=== PATIENT | female | born 2000 | race Hispanic/Latino ===

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

== ENCOUNTER 2021-05-05 19:37 | Observation (INO) | payer MEDICAID ==
[~2021-05-05] VITALS: Ht 162.6 cm; Wt 101.2 kg
[2021-05-05 19:52] VITALS: BP 124/77
[2021-05-05] MEDS ORDERED: PREN-196 PO (19:52)
[2021-05-05 20:03] LABS: APPEARANCE,URINE Clear (CLEAR); BILIRUBIN,URINE Negative (NEGATIVE); COLOR,URINE Yellow (YELLOW); GLUCOSE, URINE (UA) Negative (NEGATIVE); KETONES,URINE Negative (NEGATIVE); LEUKOCYTE ESTERASE ,URINE Trace (NEGATIVE); NITRATE,URINE Negative (NEGATIVE); OCCULT BLOOD,URINE Negative (NEGATIVE); PROTEIN,URINE Trace mg/dL (NEGATIVE)
[2021-05-05 20:09] LABS: RBC,URINE 0-1 /HPF (0-1)
[2021-05-05 20:10] LABS: BACTERIA,URINE Few /HPF (None Seen); MUCUS,URINE Few LPF (None Seen); SQUAMOUS EPITHELIAL CELL,UR Few /HPF (0-2)
[2021-05-05 20:11] LABS: AMPHET/METH SCREEN,URINE NEGATIVE (NEGATIVE); BARBITURATE SCREEN, URINE NEGATIVE (NEGATIVE); BENZODIAZEPINES SCREEN,URINE NEGATIVE (NEGATIVE); CANNABINOID SCREEN,URINE NEGATIVE (NEGATIVE); COCAINE SCREEN,URINE NEGATIVE (NEGATIVE); OPIATE SCREEN,URINE NEGATIVE (NEGATIVE); PHENCYCLIDINE SCREEN,URINE NEGATIVE (NEGATIVE)
[2021-05-05] MEDS ORDERED: LACTATED RINGERS 1000ML 1,000 ML IV SCH (20:15)
== END 2021-05-05 21:30 | disposition home or self-care (01) ==
LOC: EDH 19:37 → LDH 19:48
PROVIDERS: ADMIT Obstetrics & Gynecology; ATTEND Obstetrics & Gynecology
DX: O26.893 Other specified pregnancy related conditions, third trimester (principal); R10.10 Upper abdominal pain, unspecified; O99.613 Diseases of the digestive system complicating pregnancy, third trimester; K59.00 Constipation, unspecified; O99.323 Drug use complicating pregnancy, third trimester; F12.90 Cannabis use, unspecified, uncomplicated; Z3A.37 37 weeks gestation of pregnancy; W19.XXXA Unspecified fall, initial encounter; Y93.89 Activity, other specified; Y92.008 Other place in unspecified non-institutional (private) residence as the place of occurrence of the external cause
CPT/HCPCS: 80305; 81001; 96360; G0378 ×2; G0379

== ENCOUNTER 2021-06-13 05:08 | Inpatient (IN) | payer MEDICAID ==
[~2021-06-13] VITALS: Ht 162.6 cm; Wt 104.8 kg
[~2021-06-13 05:08] MED LIST: PREN-196 PO
[2021-06-13] MEDS ORDERED: PREN-196 PO (05:22)
[2021-06-13] MEDS ORDERED: CALDOLOR 800MG+NS 250ML 250 ML IV PRN (05:30)
[2021-06-13] MEDS ORDERED: GENTAMICIN SULFATE 240 MG in 0.9%NACL 100ML 100 ML IV PRN (05:30)
[2021-06-13] MEDS ORDERED: CLINDAMYCIN IVPB 900MG/50ML 50 ML IV PRN (05:30)
[2021-06-13 06:15] LABS: HEMATOCRIT 29.2 % (36-48); MEAN CORPUSCULAR HEMOGLOBIN 21.9 pg (27.0-33.0); MEAN CORPUSCULAR HGB CONC 30.5 g/dL (32.0-36.0); MEAN CORPUSCULAR VOLUME 71.9 fL (80-100); NUCLEATED RED BLOOD CELLS 0.2 % (0.0-0.19); PLATELET COUNT (AUTO) 192 K/uL (130-400); RED BLOOD CELL COUNT(AUTO) 4.06 MIL/uL (4.00-5.50); RED CELL DISTRIBUTION WIDTH 16.1 % (11.0-15.5); WHITE BLOOD COUNT (AUTO) 8.9 K/uL (4.8-10.8)
[2021-06-13] MEDS ORDERED: CLINDAMYCIN 900MG/6ML INJ IJ ONE (06:30)
[2021-06-13] MEDS ORDERED: MORPHINE PF 100MG/10ML AMP IV ONE (07:23)
[2021-06-13] MEDS ORDERED: OXYTOCIN 10 USP UNITS/ML ONE (07:23)
[2021-06-13 07:43] LABS: AMPHET/METH SCREEN,URINE NEGATIVE (NEGATIVE); BARBITURATE SCREEN, URINE NEGATIVE (NEGATIVE); BENZODIAZEPINES SCREEN,URINE NEGATIVE (NEGATIVE); CANNABINOID SCREEN,URINE NEGATIVE (NEGATIVE); COCAINE SCREEN,URINE NEGATIVE (NEGATIVE); OPIATE SCREEN,URINE NEGATIVE (NEGATIVE); PHENCYCLIDINE SCREEN,URINE NEGATIVE (NEGATIVE)
[2021-06-13] MEDS ORDERED: METHYLERGONOVINE MALEATE 0.2 MG/1 ML ML ONE (07:46)
[2021-06-13] MEDS ORDERED: MISOPROSTOL 200 MCG TABLET ONE (07:46)
[2021-06-13] MEDS ORDERED: ONDANSETRON 4MG INJ ONE (07:59)
[2021-06-13] MEDS ORDERED: GLYCOPYRROLATE 1 MG/5 ML SYRINGE ONE (07:59)
[2021-06-13] MEDS ORDERED: PROMETHAZINE HCL 25 MG/ML 1ML AMPULE IM PRN (09:00)
[2021-06-13] MEDS ORDERED: DEXTROSE 5 %-0.45 % NACL 1,000 ML IV PRN (09:00)
[2021-06-13] MEDS ORDERED: 0.9%NACL 10ML VIAL IVP PRN (09:00)
[2021-06-13] MEDS ORDERED: OXYTOCIN-LR 20 UNITS/1000 ML 1,000 ML IV PRN (09:00)
[2021-06-13] MEDS ORDERED: MEPERIDINE-PF 75 MG/ML SYG IM PRN (09:00)
[2021-06-13] MEDS ORDERED: DiphenhydrAMINE HCL 50 MG/ML VIAL IVP PRN (09:30)
[2021-06-13] MEDS ORDERED: NALOXONE HCL 0.4 MG/1 ML ML IVP PRN (09:30)
[2021-06-13] MEDS ORDERED: ONDANSETRON 4MG INJ IVP PRN (09:30)
[2021-06-13] MEDS ORDERED: EPHEDRINE SULFATE 50 MG/ML AMPULE IVP PRN (09:30)
[2021-06-13 12:22] VITALS: BP 126/70
[2021-06-13 16:09] VITALS: BP 124/79
[2021-06-13] MEDS ORDERED: PREN1TAB63 PO (16:37)
[2021-06-13] MEDS: CALDOLOR 800MG+NS 250ML 250 ML IV SCH (16:43)
[2021-06-13] MEDS ORDERED: FLU VACC QS2021-22(6MOS UP)/PF 60 MCG/0.5 ML ML IM ONE (17:00)
[2021-06-13] MEDS ORDERED: DIPH,PERTUSS(ACELL),TET VAC/PF 0.5 ML VIAL IM ONE (17:00)
[2021-06-13 19:38] VITALS: BP 121/56
[2021-06-13 23:10] VITALS: BP 119/52
[2021-06-13 23:58] VITALS: BP 126/73
[2021-06-14] VITALS (7 sets, daily range): BP systolic 108–129; BP diastolic 61–80
[2021-06-14] MEDS: CALDOLOR 800MG+NS 250ML 250 ML IV SCH (01:10)
[2021-06-14] MEDS ORDERED: FLU VACC QS2021-22(6MOS UP)/PF 60 MCG/0.5 ML ML IM ONE (06:30)
[2021-06-14] MEDS ORDERED: DIPH,PERTUSS(ACELL),TET VAC/PF 0.5 ML VIAL IM ONE (06:30)
[2021-06-14 07:10] LABS: MEAN CORPUSCULAR HEMOGLOBIN 21.5 pg (27.0-33.0); MEAN CORPUSCULAR HGB CONC 29.5 g/dL (32.0-36.0); MEAN CORPUSCULAR VOLUME 72.8 fL (80-100); RED BLOOD CELL COUNT(AUTO) 3.02 MIL/uL (4.00-5.50); RED CELL DISTRIBUTION WIDTH 16.5 % (11.0-15.5); WHITE BLOOD COUNT (AUTO) 15.2 K/uL (4.8-10.8)
[2021-06-14 07:19] LABS: HEPATITIS Bs ANTIGEN SCREEN P Negative (Negative)
[2021-06-14] MEDS ORDERED: HYDROCODONE/ACETAMINOPHEN 5/325 MG TAB PO PRN (09:00)
[2021-06-14] MEDS ORDERED: ACETAMINOPHEN WITH CODEINE 1 TAB TAB PO PRN (09:00)
[2021-06-14] MEDS ORDERED: ACETAMINOPHEN 500 MG TABLET PO PRN (09:00)
[2021-06-14] MEDS ORDERED: BISACODYL 10 MG SUPP.RECT RC PRN (09:00)
[2021-06-14] MEDS: DOCUSATE SODIUM 100 MG CAP PO SCH ×2 (09:22→20:09)
[2021-06-14] MEDS: SIMETHICONE 80 MG TAB.CHEW PO PRN ×2 (09:22→20:09)
[2021-06-14] MEDS: IBUPROFEN 800 MG TAB PO SCH ×2 (09:22→17:00)
[2021-06-15] MEDS: IBUPROFEN 800 MG TAB PO SCH ×2 (00:40→08:22)
[2021-06-15 03:34] VITALS: BP 129/74
[2021-06-15 07:16] VITALS: BP 118/57
[2021-06-15] MEDS: DOCUSATE SODIUM 100 MG CAP PO SCH (08:16)
[2021-06-15] MEDS: SIMETHICONE 80 MG TAB.CHEW PO PRN ×2 (08:16→13:51)
[2021-06-15 11:51] VITALS: BP 120/69
[2021-06-15] MEDS ORDERED: DOCU-116 PO (12:10)
[2021-06-15] MEDS ORDERED: IBUP-2077 PO (12:11)
[2021-06-15] MEDS ORDERED: ACET1TAB25 PO (12:12)
== END 2021-06-15 14:20 | disposition home or self-care (01) | DRG 540 ==
LOC: LDH 05:08 → WSH 12:41
PROVIDERS: ADMIT Obstetrics & Gynecology; ATTEND Obstetrics & Gynecology
PROC: 3E0234Z Introduction of Serum, Toxoid and Vaccine into Muscle, Percutaneous Approach (ICD-10-PCS; 2021-06-13)
PROC: 3E02340 Introduction of Influenza Vaccine into Muscle, Percutaneous Approach (ICD-10-PCS; 2021-06-13)
PROC: 3E0334Z Introduction of Serum, Toxoid and Vaccine into Peripheral Vein, Percutaneous Approach (ICD-10-PCS; 2021-06-13)
PROC: 10D00Z1 Extraction of Products of Conception, Low, Open Approach (ICD-10-PCS; principal; 2021-06-13 07:30)
DX: O32.4XX0 Maternal care for high head at term, not applicable or unspecified (principal); O99.214 Obesity complicating childbirth; O26.893 Other specified pregnancy related conditions, third trimester; O36.63X0 Maternal care for excessive fetal growth, third trimester, not applicable or unspecified; O99.02 Anemia complicating childbirth; O69.81X0 Labor and delivery complicated by cord around neck, without compression, not applicable or unspecified; Z3A.40 40 weeks gestation of pregnancy; Z37.0 Single live birth; Z23 Encounter for immunization; Z88.0 Allergy status to penicillin; Z67.11 Type A blood, Rh negative
CPT/HCPCS: 36415; 59510; 80305; 83033; 85027; 86592; 86850; 86900; 86901; 87340; 90715; A4344; G0378; J1580; J1741; J2210; J2274; J2405; J2590; J2791; J3490; J7120; Q2035

== ENCOUNTER 2022-05-12 14:31 | Emergency (ER) | payer MEDICAID ==
[~2022-05-12] VITALS: Ht 165.1 cm; Wt 108.9 kg
[~2022-05-12 14:31] MED LIST changes: +ACET-2079 PO; +DOCU-116 PO; +IBUP-2077 PO
[2022-05-12 15:32] LABS: BASOPHILS % (AUTO) 0.6 % (0.0-5.0); EOSINOPHILS % (AUTO) 2.5 % (0.0-8.0); LYMPHOCYTES % (AUTO) 23.1 % (21.0-51.0); MEAN CORPUSCULAR HEMOGLOBIN 25.7 pg (27.0-33.0); MEAN CORPUSCULAR HGB CONC 32.3 g/dL (32.0-36.0); MEAN CORPUSCULAR VOLUME 79.8 fL (80-100); NEUTROPHILS % (AUTO) 64.5 % (40.0-77.0); PLATELET COUNT (AUTO) 238 K/uL (130-400); RED BLOOD CELL COUNT(AUTO) 5.01 MIL/uL (4.00-5.50); RED CELL DISTRIBUTION WIDTH 13.3 % (11.0-15.5); WHITE BLOOD COUNT (AUTO) 7.1 K/uL (4.8-10.8)
[2022-05-12 15:34] LABS: APPEARANCE,URINE CLOUDY (CLEAR); BILIRUBIN,URINE NEGATIVE (NEGATIVE); COLOR,URINE LIGHT-YELLOW (YELLOW); GLUCOSE, URINE (UA) NEGATIVE (NEGATIVE); KETONES,URINE NEGATIVE (NEGATIVE); LEUKOCYTE ESTERASE ,URINE 75 Leu/uL (NEGATIVE); NITRATE,URINE NEGATIVE (NEGATIVE); OCCULT BLOOD,URINE LARGE (NEGATIVE); PH,URINE 6.5 (5.0-8.0); PROTEIN,URINE 70 mg/dL (NEGATIVE); UROBILINOGEN,URINE 0.2 mg/dL (0.2-1.0)
[2022-05-12 15:36] LABS: HCG,QUALITATIVE URINE NEGATIVE (NEGATIVE)
[2022-05-12 15:41] LABS: MUCUS,URINE RARE LPF (None Seen); RBC,URINE TNTC /HPF (0-1); SQUAMOUS EPITHELIAL CELL,UR FEW /HPF (0-2); WBC,URINE 26-50 /HPF (0-1)
[2022-05-12 15:49] LABS: CREATININE 0.7 mg/dL (0.5-1.5); POTASSIUM 3.7 mmol/L (3.5-5.1)
[2022-05-12 16:00] LABS: ALBUMIN 4.3 g/dL (3.5-5.0); TOTAL PROTEIN, SERUM 8.2 g/dL (6.0-8.3)
[2022-05-12] MEDS ORDERED: AZITHROMYCIN 250 MG TABLET PO ONE ×2 (16:00→16:07)
[2022-05-12] MEDS ORDERED: CEFTRIAXONE 1G VIAL IM ONE (16:00)
[2022-05-12] MEDS ORDERED: CEFTRIAXONE 1G VIAL ONE (16:06)
[2022-05-12] MEDS ORDERED: LIDOCAINE HCL-MPF 2% 5ML VIAL ONE (16:06)
[2022-05-12] MEDS ORDERED: ACET-66 PO (17:02)
[2022-05-12] MEDS ORDERED: MACR100 PO (17:02)
[2022-05-12 17:09] VITALS: BP 119/72
== END 2022-05-12 17:14 | disposition home or self-care (01) ==
LOC: EDH 14:31
DX: N39.0 Urinary tract infection, site not specified (principal); Z79.1 Long term (current) use of non-steroidal anti-inflammatories (NSAID); Z88.0 Allergy status to penicillin
CPT/HCPCS: 99284; 80053; 84702; 85025; 86900; 86901; 87210; 87088; 87797; 87486; 81001; 81025; 36415; 96372; J0696; J3490

== ENCOUNTER 2024-05-07 01:47 | Emergency (ER) | payer BC, MEDICAID ==
[~2024-05-07] VITALS: Ht 165.1 cm; Wt 93.0 kg
[~2024-05-07 01:47] MED LIST changes: +ACET-66 PO; +MACR100 PO
[2024-05-07 02:24] LABS: BASOPHILS # (AUTO) 0.07 K/uL (0.00-0.20); BASOPHILS % (AUTO) 0.8 % (0.0-5.0); EOSINOPHILS # (AUTO) 0.09 K/uL (0.00-0.70); EOSINOPHILS % (AUTO) 1.1 % (0.0-8.0); HEMATOCRIT 40.9 % (36-48); IMMATURE GRANULOCYTE ABSOLUTE 0.03 K/uL (0-1); LYMPHOCYTES # (AUTO) 1.7 K/uL (1.0-4.8); LYMPHOCYTES % (AUTO) 19.5 % (21.0-51.0); MEAN CORPUSCULAR HEMOGLOBIN 27.7 pg (27.0-33.0); MEAN CORPUSCULAR HGB CONC 33.7 g/dL (32.0-36.0); MONOCYTES # (AUTO) 0.7 K/uL (0.1-1.0); MONOCYTES % (AUTO) 8.8 % (3.0-13.0); NEUTROPHILS # (AUTO) 5.9 K/uL (1.8-7.7); NEUTROPHILS % (AUTO) 69.4 % (40.0-77.0); PLATELET COUNT (AUTO) 230 K/uL (130-400); RED BLOOD CELL COUNT(AUTO) 4.99 MIL/uL (4.00-5.50); RED CELL DISTRIBUTION WIDTH 13.3 % (11.0-15.5); WHITE BLOOD COUNT (AUTO) 8.5 K/uL (4.8-10.8)
[2024-05-07 02:26] LABS: APPEARANCE,URINE CLEAR (CLEAR); BILIRUBIN,URINE NEGATIVE (NEGATIVE); COLOR,URINE LIGHT-YELLOW (YELLOW); GLUCOSE, URINE (UA) NEGATIVE (NEGATIVE); KETONES,URINE NEGATIVE (NEGATIVE); LEUKOCYTE ESTERASE ,URINE 75 Leu/uL (NEGATIVE); NITRATE,URINE NEGATIVE (NEGATIVE); OCCULT BLOOD,URINE NEGATIVE (NEGATIVE); PH,URINE 5.5 (5.0-8.0); PROTEIN,URINE 10 mg/dL (NEGATIVE); UROBILINOGEN,URINE 0.2 mg/dL (0.2-1.0)
--- NOTE | 2024-05-07 02:29 | ERN ---
General Chief Complaint: Abdominal Pain Stated Complaint: EPIGASTRIC PAIN Time Seen by MD: 02:10 Time Seen by Midlevel: 02:10 Source: patient History of Present Illness Initial Comments Patient is a 23-year-old female with no significant past medical history presenting with lower abdominal pain after lifting heavy. Patient states her older sister had fallen in the restroom and she attempted to pick her up. Patient states she recently found out she was four days ago and became concerned when she developed lower abdominal pain so she decided to report to the ER for further evaluation. On arrival she does report her pain improving but still has slight discomfort. She denies any vaginal bleeding, nausea, vomiting, or any other symptoms at this time. Allergies: Coded Allergies: No Known Drug Allergies (Unverified Allergy, Unknown, 05/05/21) amoxicillin (Unverified Allergy, Unknown, SWELLING, 05/05/21) Home Meds Active Scripts Nitrofurantoin/Nitrofuran Mac (Macrobid) 100 Mg Cap, 1 CAP PO BID for 5 Days, #10 CAP 0 Refills Prov:CLIFFORD HAND 05/07/24 Acetaminophen (Tylenol) 500 Mg Tab, 500 MG PO Q4PRN, #30 TAB Prov:CHINMAY ZAMORANO INK BLENDER 05/12/22 Nitrofurantoin/Nitrofuran Mac (Macrobid) 100 Mg Cap, 1 CAP PO BID for 7 Days, #14 CAP 0 Refills Prov:CHINMAY ZAMORANO INK BLENDER 05/12/22 Reported Medications Acetaminophen with Codeine (Acetaminophen-Cod #3 Tablet) 1 Each Tablet, 1 EACH PO Q4H, TAB 06/15/21 Ibuprofen (Ibuprofen 800 mg Tab) 800 Mg Tab, 800 MG PO Q8H PRN for PAIN, TAB 06/15/21 Docusate Sodium (Colace) 100 Mg Capsule, 100 MG PO BID, CAP 06/15/21 Vit No.124/Iron/FA ( Vitamin Tablet) 1 Each Tablet, 1 EACH PO DAILY, TAB 06/13/21 Past Medical History Past Medical History: No Pertinent History Past Surgical History: Female( History) LMP: Apr 04, 2024 : 2 Para: 1 Aborts: 0 ROS Dictation CONSTITUTIONAL: Negative except for HPI HEAD/FACE: Negative except for HPI EENT: Negative except for HPI RESPIRATORY: Negative except for HPI GASTROINTESTINAL/ABDOMINAL: Negative except for HPI GENITOURINARY: Negative except for HPI MUSCULOSKELETAL: Negative except for HPI INTEGUMENTARY: Negative except for HPI NEUROLOGICAL/PSYCH: Negative except for HPI HEMATOLOGIC/LYMPHATIC: Negative except for HPI All Systems Negative, Except as noted above. 13 point review of systems assessed and all negative except for above. Physical Exam Physical Exam Dictation Vital Signs reviewed General Appearance: Alert, oriented x 3, no acute distress, well developed, nourished. Head and Face: non-traumatic. Eyes: PERRL, pink conjunctivas, eyelid no trauma, anterior chamber with arcus senilis. Ears: Pinnas intact and no signs of trauma or erythema ear canals clear and no discharge TM no erythema Nose: No discharge, no bleeding. Oropharynx: Mouth normal, tongue pink, pharynx clear,no erythema, tonsils no exudates, no abscesses noted, mucous membrane moist Neck: Supple, non-tender, no thyromegaly, no masses, no JVD, no bruits Breast:Deferred Chest:No tenderness, no crepitus, no paradoxical movement, no retractions Lungs:Clear, well-ventilated, symmetric, no rales, no wheezing, no rhonchi, no stridor, good breath sounds bilaterally Heart: Regular rate, regular rhythm, no murmur, no gallops Vascular: no peripheral edema, Abdomen: Soft, positive bowel sounds, nondistended, no guarding, nontender, no rebound, no masses no hepatomegaly, no splenomegaly, no Currie's sign, no hernias. Rectal: Deferred Genital: Deferred Neurological: Normal speech, motor function intact, sensory function intact Musculoskeletal: Neck nontender, full range of motion, back nontender, full range of motion, Extremities: nontender, full range of motion Skin: Color pink, dry, no turgor, no rash, no lacerations, no abrasions, no con tusions. Lymphatic: Deferred Results Laboratory and Microbiology Lab and Micro Result Laboratory Tests Test 05/07/24 01:13 05/07/24 02:06 White Blood Count 8.5 K/uL (4.8-10.8) Red Blood Count 4.99 MIL/uL (4.00-5.50) Hemoglobin 13.8 g/dL (12.0-16.0) Hematocrit 40.9 % (36-48) Mean Corpuscular Volume 82.0 fL (79-99) Mean Corpuscular Hemoglobin 27.7 pg (27.0-33.0) Mean Corpuscular Hemoglobin Concent 33.7 g/dL (32.0-36.0) Red Cell Distribution Width 13.3 % (11.0-15.5) Platelet Count 230 K/uL (130-400) Mean Platelet Volume 11.2 fL (7.5-10.5) H Immature Granulocyte % (Auto) 0.4 % (0-1) Neutrophils (%) (Auto) 69.4 % (40.0-77.0) Lymphocytes (%) (Auto) 19.5 % (21.0-51.0) L Monocytes (%) (Auto) 8.8 % (3.0-13.0) Eosinophils (%) (Auto) 1.1 % (0.0-8.0) Basophils (%) (Auto) 0.8 % (0.0-5.0) Neutrophils # (Auto) 5.9 K/uL (1.8-7.7) Lymphocytes # (Auto) 1.7 K/uL (1.0-4.8) Monocytes # (Auto) 0.7 K/uL (0.1-1.0) Eosinophils # (Auto) 0.09 K/uL (0.00-0.70) Basophils # (Auto) 0.07 K/uL (0.00-0.20) Absolute Immature Granulocyte (auto 0.03 K/uL (0-1) Nucleated Red Blood Cells 0.0 % (0.0-0.19) Sodium Level 137 mmol/L (136-145) Potassium Level 4.1 mmol/L (3.5-5.1) Chloride Level 103 mmol/L (101-111) Carbon Dioxide Level 24 mmol/L (21-32) Blood Urea Nitrogen 14 mg/dL (7-18) Creatinine 0.7 mg/dL (0.5-1.0) Glomerular Filtration Rate Calc 125 mL/min (>90) Random Glucose 102 mg/dL (70-105) Total Calcium 9.5 mg/dL (8.5-10.1) Total Bilirubin 0.6 mg/dL (0.2-1.0) Direct Bilirubin < 0.1 mg/dL (0.0-0.3) Aspartate Amino Transf (AST/SGOT) 25 U/L (10-37) Alanine Aminotransferase (ALT/SGPT) 24 U/L (12-78) Alkaline Phosphatase 74 U/L (50-136) Total Protein 8.9 g/dL (6.0-8.3) H Albumin 4.5 g/dL (3.5-5.0) Lipase 38 U/L (16-77) Human Chorionic Gonadotropin, Quant 623 mIU/mL (0-5) H Urine Color LIGHT-YELLOW (YELLOW) Urine Appearance CLEAR (CLEAR) Urine pH 5.5 (5.0-8.0) Urine Specific [place] 1.032 (1.001-1.031) Urine Protein 10 mg/dL (NEGATIVE) H Urine Glucose (UA) NEGATIVE mg/dL (NEGATIVE) Urine Ketones NEGATIVE mg/dL (NEGATIVE) Urine Occult Blood NEGATIVE (NEGATIVE) Urine Nitrate NEGATIVE (NEGATIVE) Urine Bilirubin NEGATIVE mg/dL (NEGATIVE) Urine Urobilinogen 0.2 mg/dL (0.2-1.0) Urine Leukocyte Esterase 75 Speedy/uL (NEGATIVE) H Urine RBC 2-5 /HPF (0-1) H Urine WBC 11-25 /HPF (0-1) H Urine Squamous Epithelial Cells MOD /HPF (0-2) Urine Non-Squamous Epithelial Cells 2 /HPF (0-2) Urine Bacteria MOD /HPF (None Seen) Labs Reviewed?: Yes MDM MDM: Patient is a 23-year-old female with no significant past medical history presenting with lower abdominal pain after lifting heavy. Patient states her older sister had fallen in the restroom and she attempted to pick her up. Patient states she recently found out she was four days ago and became concerned when she developed lower abdominal pain so she decided to report to the ER for further evaluation. On arrival she does report her pain improving but still has slight discomfort. She denies any vaginal bleeding, nausea, vomiting, or any other symptoms at this time. On physical examination patient is in no acute distress. She has some subjective suprapubic abdominal cramping however during my examination there was no tenderness, rebound, or guarding. Given that she recently found out she was an ultrasound was ordered which did not reveal an intrauterine . This is most likely due to an early however we can not exclude an ectopic at this time. Her hCG is positive at 600 so most likely this is an early . Patient was advised to follow up with her OBGYN within the next week for repeat hCG testing and possible ultrasound. If she is to develop any new or worsening symptoms she was to report to the ER for further evaluation. Differential diagnosis: Threatened , miscarriage, 1st trimester , wellness examination There are no social concerns with this patient. Prescription drug management Prescriptions will include: None Medical management and examination interpretation discussions were had by me with other qualified healthcare professionals as indicated for the patient's care. ED Course Orders Procedure Category Date Status Time Urinalysis Profile LAB 05/07/24 Complete 01:49 Hcg,Quantitative LAB 05/07/24 Complete 01:49 Cbc With Differential LAB 05/07/24 Complete 01:49 Basic Metabolic Panel LAB 05/07/24 Complete 01:49 Lipase LAB 05/07/24 Complete 01:49 Hepatic Function Panel LAB 05/07/24 Complete 01:49 Us Ob <14 Weeks US 05/07/24 Resulted 02:15 Culture Urine ANGEL 05/07/24 Complete 02:40 Vital Signs Date Time Temp Pulse Resp B/P (MAP) Pulse Ox O2 Delivery O2 Flow Rate FiO2 05/07/24 03:34 98.2 74 16 126/74 98 Room Air* 0 21 05/07/24 02:15 98.8 75 16 124/68 98 Room Air* 0 21 05/07/24 01:48 98.6 97 16 123/87 100 Room Air DX & DISP Disposition: Discharge Departure Impression: Primary Impression: First trimester Additional Impression: Urinary tract infection Condition: Stable Scripts Nitrofurantoin/Nitrofuran Mac (Macrobid) 100 Mg Cap 1 CAP PO BID for 5 Days, #10 CAP 0 Refills Prov: CLIFFORD HAND 05/07/24 Additional Instructions: Your blood work today is unremarkable. Your urinalysis is consistent with infection. I have given you a prescription for Macrobid. Your hCG quant is 623. Your ultrasound does not show an intrauterine at this time however I believe it is too soon to see anything on ultrasound. Based on your hCG quant there is an estimated gestational age of four weeks. You will need to follow up with OBGYN for repeat evaluation and possible repeat ultrasound in 1-2 weeks. If you develop any new or worsening symptoms please report to the ER for further evaluation. Referrals: ERIKA SCHOFIELD MD (PCP) Time of Disposition: 02:29 I have reviewed the case, and I agree with, Diagnosis and Plan I performed a substantive portion of the visit. I have reviewed and personally made and approve the management plan that is documented in the notes by myself with TONI/resident. I acknowledged full responsibility for the patient's management plan. CLIFFORD HAND May 07, 2024 02:29 MARY ELLEN JORGE DO May 10, 2024 08:55
[2024-05-07 02:37] LABS: CARBON DIOXIDE 24 mmol/L (21-32); CHLORIDE 103 mmol/L (101-111); CREATININE 0.7 mg/dL (0.5-1.0); GLOMERULAR FILTR. RATE CALC 125 mL/min (>90); GLUCOSE,RANDOM 102 mg/dL (70-105); POTASSIUM 4.1 mmol/L (3.5-5.1); SODIUM SERUM 137 mmol/L (136-145); UREA NITROGEN, BLOOD 14 mg/dL (7-18)
[2024-05-07 02:40] LABS: ADD UA MICROSCOPIC YES
[2024-05-07 02:41] LABS: BACTERIA,URINE MOD /HPF (None Seen); MUCUS,URINE RARE LPF (None Seen); NON-SQUAMOUS EPITHELIAL CELL 2 /HPF (0-2); SQUAMOUS EPITHELIAL CELL,UR MOD /HPF (0-2)
[2024-05-07 02:48] LABS: ALANINE AMINOTRANSFERASE 24 U/L (12-78); ALBUMIN 4.5 g/dL (3.5-5.0); ASPARTATE AMINOTRANSFERASE 25 U/L (10-37); BILIRUBIN,DIRECT < 0.1 mg/dL (0.0-0.3); BILIRUBIN,TOTAL 0.6 mg/dL (0.2-1.0); HCG,QUANTITATIVE 623 mIU/mL (0-5); TOTAL PROTEIN, SERUM 8.9 g/dL (6.0-8.3)
[2024-05-07] MEDS ORDERED: MACR100 PO (03:32)
[2024-05-07 03:34] VITALS: BP 126/74; PULSE 74; RESP 16; TEMP 98.2; O2SAT 98
--- NOTE | 2024-05-07 08:20 | HMCIMG ---
ULTRASOUND OF THE PELVIS ULTRASOUND ABD VASCULAR LIMITED INDICATION: Pelvic pain COMPARISONS: None TECHNIQUE: Transabdominal real-time sonographic images were acquired earlier, and subsequently made available for review. FINDINGS: The uterus measures 9.0 x 5.0 x 6.0 cm. The uterus is normal in echotexture and contour. The endometrial thickness measures 8.0 mm. The right ovary measures 3.0 x 3.0 x 3.0 cm. The right ovary is normal in size, shape and echogenicity. No right adnexal masses demonstrated. Color Doppler flow is normal throughout the right ovary. Spectral Doppler analysis demonstrates a normal waveform pattern. The left ovary measures 3.0 x 1.0 x 1.0 cm. The left ovary is normal in size, shape and echogenicity. No left adnexal masses demonstrated. Color Doppler flow is normal throughout the left ovary. Spectral Doppler analysis demonstrates a normal waveform pattern. No free pelvic fluid demonstrated. IMPRESSION: No evidence for intrauterine , and no ectopic demonstrated.
== END 2024-05-07 03:40 | disposition home or self-care (01) ==
LOC: EDH 01:47
DX: O23.41 Unspecified infection of urinary tract in pregnancy, first trimester (principal); N39.0 Urinary tract infection, site not specified; O26.891 Other specified pregnancy related conditions, first trimester; R10.2 Pelvic and perineal pain; Z3A.01 Less than 8 weeks gestation of pregnancy; Z88.0 Allergy status to penicillin
CPT/HCPCS: 36415; 76801; 80048; 80076; 81001; 83690; 84702; 85025; 87086

== ENCOUNTER 2024-05-16 09:52 | Emergency (ER) | payer BC, MEDICAID ==
[~2024-05-16] VITALS: Ht 165.1 cm; Wt 90.7 kg
[2024-05-16 09:52] VITALS: TEMP 98.8
--- NOTE | 2024-05-16 10:43 | ERN ---
General Chief Complaint: Vaginal Bleeding Stated Complaint: BROWN VAGINAL DISCHARGE 6 WEEKS GESTATION Time Seen by MD: 10:05 Time Seen by Midlevel: 10:05 Source: patient History of Present Illness Initial Comments Patient is a 23-year-old female presenting to the emergency department with vaginal spotting that started last night. Patient reports being seen in our emergency department on May 07 where she was told she was and had an ultrasound performed which revealed no evidence of intrauterine and no ectopic was demonstrated. Her hCG was softly positive at 623. She was advised to follow up with her OBGYN but states she was unable to see them and has an appointment scheduled in two weeks. Allergies: Coded Allergies: No Known Drug Allergies (Unverified Allergy, Unknown, 05/05/21) amoxicillin (Unverified Allergy, Unknown, SWELLING, 05/05/21) Home Meds Active Scripts Nitrofurantoin/Nitrofuran Mac (Macrobid) 100 Mg Cap, 1 CAP PO BID for 5 Days, #10 CAP 0 Refills Prov:CLIFFORD HAND 05/07/24 Acetaminophen (Tylenol) 500 Mg Tab, 500 MG PO Q4PRN, #30 TAB Prov:CHINMAY ZAMORANO GAMMA OPERATOR 05/12/22 Nitrofurantoin/Nitrofuran Mac (Macrobid) 100 Mg Cap, 1 CAP PO BID for 7 Days, #14 CAP 0 Refills Prov:CHINMAY ZAMORANO GAMMA OPERATOR 05/12/22 Reported Medications Acetaminophen with Codeine (Acetaminophen-Cod #3 Tablet) 1 Each Tablet, 1 EACH PO Q4H, TAB 06/15/21 Ibuprofen (Ibuprofen 800 mg Tab) 800 Mg Tab, 800 MG PO Q8H PRN for PAIN, TAB 06/15/21 Docusate Sodium (Colace) 100 Mg Capsule, 100 MG PO BID, CAP 06/15/21 Vit No.124/Iron/FA ( Vitamin Tablet) 1 Each Tablet, 1 EACH PO DAILY, TAB 06/13/21 Past Medical History Past Medical History: No Pertinent History Past Surgical History: Female( History) LMP: Apr 04, 2024 : 2 Para: 1 Aborts: 0 ROS Dictation CONSTITUTIONAL: Negative except for HPI HEAD/FACE: Negative except for HPI EENT: Negative except for HPI RESPIRATORY: Negative except for HPI GASTROINTESTINAL/ABDOMINAL: Negative except for HPI GENITOURINARY: Negative except for HPI MUSCULOSKELETAL: Negative except for HPI INTEGUMENTARY: Negative except for HPI NEUROLOGICAL/PSYCH: Negative except for HPI HEMATOLOGIC/LYMPHATIC: Negative except for HPI All Systems Negative, Except as noted above. 13 point review of systems assessed and all negative except for above. Physical Exam Physical Exam Dictation Vital Signs reviewed General Appearance: Alert, oriented x 3, no acute distress, well developed, nourished. Head and Face: non-traumatic. Eyes: PERRL, pink conjunctivas, eyelid no trauma, anterior chamber with arcus senilis. Ears: Pinnas intact and no signs of trauma or erythema ear canals clear and no discharge TM no erythema Nose: No discharge, no bleeding. Oropharynx: Mouth normal, tongue pink, pharynx clear,no erythema, tonsils no exudates, no abscesses noted, mucous membrane moist Neck: Supple, non-tender, no thyromegaly, no masses, no JVD, no bruits Breast:Deferred Chest:No tenderness, no crepitus, no paradoxical movement, no retractions Lungs:Clear, well-ventilated, symmetric, no rales, no wheezing, no rhonchi, no stridor, good breath sounds bilaterally Heart: Regular rate, regular rhythm, no murmur, no gallops Vascular: no peripheral edema, Abdomen: Soft, positive bowel sounds, nondistended, no guarding, nontender, no rebound, no masses no hepatomegaly, no splenomegaly, no Currie's sign, no hernias. Rectal: Deferred Genital: Deferred Neurological: Normal speech, motor function intact, sensory function intact Musculoskeletal: Neck nontender, full range of motion, back nontender, full range of motion, Extremities: nontender, full range of motion Skin: Color pink, dry, no turgor, no rash, no lacerations, no abrasions, no contusions. Lymphatic: Deferred Results Laboratory and Microbiology Lab and Micro Result Laboratory Tests Test 05/16/24 10:54 05/16/24 13:15 White Blood Count 6.2 K/uL (4.8-10.8) Red Blood Count 4.84 MIL/uL (4.00-5.50) Hemoglobin 13.4 g/dL (12.0-16.0) Hematocrit 40.6 % (36-48) Mean Corpuscular Volume 83.9 fL (79-99) Mean Corpuscular Hemoglobin 27.7 pg (27.0-33.0) Mean Corpuscular Hemoglobin Concent 33.0 g/dL (32.0-36.0) Red Cell Distribution Width 13.2 % (11.0-15.5) Platelet Count 223 K/uL (130-400) Mean Platelet Volume 11.1 fL (7.5-10.5) H Immature Granulocyte % (Auto) 0.2 % (0-1) Neutrophils (%) (Auto) 67.5 % (40.0-77.0) Lymphocytes (%) (Auto) 23.7 % (21.0-51.0) Monocytes (%) (Auto) 6.8 % (3.0-13.0) Eosinophils (%) (Auto) 1.0 % (0.0-8.0) Basophils (%) (Auto) 0.8 % (0.0-5.0) Neutrophils # (Auto) 4.2 K/uL (1.8-7.7) Lymphocytes # (Auto) 1.5 K/uL (1.0-4.8) Monocytes # (Auto) 0.4 K/uL (0.1-1.0) Eosinophils # (Auto) 0.06 K/uL (0.00-0.70) Basophils # (Auto) 0.05 K/uL (0.00-0.20) Absolute Immature Granulocyte (auto 0.01 K/uL (0-1) Nucleated Red Blood Cells 0.0 % (0.0-0.19) Sodium Level 143 mmol/L (136-145) Potassium Level 4.0 mmol/L (3.5-5.1) Chloride Level 104 mmol/L (101-111) Carbon Dioxide Level 29 mmol/L (21-32) Blood Urea Nitrogen 9 mg/dL (7-18) Creatinine 0.7 mg/dL (0.5-1.0) Glomerular Filtration Rate Calc 125 mL/min (>90) Random Glucose 95 mg/dL (70-105) Total Calcium 9.1 mg/dL (8.5-10.1) Human Chorionic Gonadotropin, Quant 9967 mIU/mL (0-5) H Urine Color LIGHT-YELLOW (YELLOW) Urine Appearance CLEAR (CLEAR) Urine pH 8.0 (5.0-8.0) Urine Specific [place] 1.017 (1.001-1.031) Urine Protein NEGATIVE mg/dL (NEGATIVE) Urine Glucose (UA) NEGATIVE mg/dL (NEGATIVE) Urine Ketones NEGATIVE mg/dL (NEGATIVE) Urine Occult Blood NEGATIVE (NEGATIVE) Urine Nitrate NEGATIVE (NEGATIVE) Urine Bilirubin NEGATIVE mg/dL (NEGATIVE) Urine Urobilinogen 0.2 mg/dL (0.2-1.0) Urine Leukocyte Esterase 75 Speedy/uL (NEGATIVE) H Urine RBC 2-5 /HPF (0-1) H Urine WBC 2-5 /HPF (0-1) H Urine Squamous Epithelial Cells MOD /HPF (0-2) Urine Bacteria RARE /HPF (None Seen) Labs Reviewed?: Yes MDM MDM: Differential diagnosis: First trimester , threatened , miscarriage, urinary tract infection, yeast infection There are no social concerns with this patient. Prescription drug management Prescriptions will include: Monistat seven Medical management and examination interpretation discussions were had by me with other qualified healthcare professionals as indicated for the patient's ca re. ED Course Orders Procedure Category Date Status Time Vital Signs Per CPOE 05/16/24 Transmitted Routine 09:55 Cbc With Differential LAB 05/16/24 Complete 09:55 Type And Screen BBK 05/16/24 Complete 09:55 Iv Insertion CPOE 05/16/24 Transmitted 09:55 Basic Metabolic Panel LAB 05/16/24 Complete 09:55 Us Ob <14 Weeks US 05/16/24 Resulted 09:58 Urinalysis Profile LAB 05/16/24 Complete 10:15 Hcg,Quantitative LAB 05/16/24 Complete 10:54 Fluconazole 100 Mg PHA 05/16/24 Complete Tab (Diflucan 100 Mg 13:00 Culture Urine ANGEL 05/16/24 In Process 14:01 Current Medications Medications (Trade) Dose Ordered Sig/Arpit Route PRN Reason Start Time Stop Time Status Last Admin Dose Admin Fluconazole (DiFLUCan 100 mg TAB) 150 mg ONCE ONCE PO 05/16/24 13:00 05/16/24 13:42 DC Vital Signs Date Time Temp Pulse Resp B/P (MAP) Pulse Ox O2 Delivery O2 Flow Rate FiO2 05/16/24 09:52 98.8 71 20 126/68 100 Room Air 0 [place] [id number] [address] IMAGING REPORT Signed PATIENT: ANNIE KUMAR MR#: [id number] : 2000 SEX: F AGE: 23 LOCATION: [facility] ORDER 8 STATUS: REG ER REPORT#: [id number] SERVICE REASON: vagbleed ORDERING PHYSICIAN: RAMU CEVALLOS MD PROCEDURE: OB <14 - US OB <14 WEEKS US OB <14 WEEKS REASON: vagbleed COMPARISON: None TECHNIQUE: Routine pelvic sonogram was performed FINDINGS: Uterus is 11.2 x 5.0 x 5.4 cm. There is a very small fluid collection in the uterus which appears consistent with an early gestational sac, 5 weeks 6 days by sac size. There is no evidence of pole or yolk sac, viability therefore cannot be confirmed. There is a 2 cm follicle right ovary. Ovaries appear otherwise normal. There are no adnexal masses. There is no free fluid in the cul-de-sac. IMPRESSION: 1. Very small fluid collection in the uterus, this could be an early 5 week 6 day gestational sac, however pole or yolk sac not yet seen. 2. Repeat exam in 7-10 days would be helpful to confirm viability. 3. 2 cm follicle right ovary. DICTATED BY: ROCHELLE LOPEZ MD DATE: 05/16/241104 ELECTRONICALLY SIGNED BY: ROCHELLE LOPEZ MD DATE: 05/16/241108 DX & DISP Disposition: Discharge Departure Impression: Primary Impression: First trimester Additional Impression: Vaginal itching Condition: Stable Scripts Miconazole Nitrate (Monistat 7) 2 % Cream.appl 1 TONI VG HS for 7 Days, #45 GM 0 Refills Prov: CLIFFORD HAND 05/16/24 Additional Instructions: Your blood work today is stable. Your hCG quant is 9967. This is an increase from previous hCG which was in the 500s. Your ultrasound shows a very small fluid collection in the uterus which could represent an early gestation of approximately 5-6 weeks. However, pole and yolk sac are not yet seen. You will need a repeat ultrasound in 7-10 days to confirm viability. Your urinalysis does not reveal any evidence of infection. Given your symptoms of vaginal itching I have prescribed you Monistat for outpatient evaluation. I am unable to provide you with the one time dose given that it is not safe during her 1st trimester . Please keep appointment with your OBGYN in two weeks. I think it is appropriate to have a repeat ultrasound and repeat hCG quant at that time. If you develop any new or worsening symptoms please report to the ER for further evaluation. Referrals: NNAMDI MAYA (PCP) Time of Disposition: 14:20 I have reviewed the case, and I agree with, Diagnosis and Plan I performed the substantive portion of the visit. I have reviewed and personally made and approve the management plan that is documented in the note by myself or the TONI. I acknowledge for responsibility for the patient's management plan. CLIFFORD HAND May 16, 2024 10:43
--- NOTE | 2024-05-16 11:09 | HMCIMG ---
US OB <14 WEEKS REASON: vagbleed COMPARISON: None TECHNIQUE: Routine pelvic sonogram was performed FINDINGS: Uterus is 11.2 x 5.0 x 5.4 cm. There is a very small fluid collection in the uterus which appears consistent with an early gestational sac, 5 weeks 6 days by sac size. There is no evidence of pole or yolk sac, viability therefore cannot be confirmed. There is a 2 cm follicle right ovary. Ovaries appear otherwise normal. There are no adnexal masses. There is no free fluid in the cul-de-sac. IMPRESSION: 1. Very small fluid collection in the uterus, this could be an early 5 week 6 day gestational sac, however pole or yolk sac not yet seen. 2. Repeat exam in 7-10 days would be helpful to confirm viability. 3. 2 cm follicle right ovary.
[2024-05-16 11:32] LABS: BASOPHILS # (AUTO) 0.05 K/uL (0.00-0.20); BASOPHILS % (AUTO) 0.8 % (0.0-5.0); EOSINOPHILS # (AUTO) 0.06 K/uL (0.00-0.70); HEMATOCRIT 40.6 % (36-48); IMMATURE GRANULOCYTE ABSOLUTE 0.01 K/uL (0-1); LYMPHOCYTES # (AUTO) 1.5 K/uL (1.0-4.8); LYMPHOCYTES % (AUTO) 23.7 % (21.0-51.0); MEAN CORPUSCULAR HEMOGLOBIN 27.7 pg (27.0-33.0); MEAN CORPUSCULAR VOLUME 83.9 fL (79-99); MONOCYTES # (AUTO) 0.4 K/uL (0.1-1.0); MONOCYTES % (AUTO) 6.8 % (3.0-13.0); NEUTROPHILS # (AUTO) 4.2 K/uL (1.8-7.7); NEUTROPHILS % (AUTO) 67.5 % (40.0-77.0); PLATELET COUNT (AUTO) 223 K/uL (130-400); RED BLOOD CELL COUNT(AUTO) 4.84 MIL/uL (4.00-5.50); RED CELL DISTRIBUTION WIDTH 13.2 % (11.0-15.5); WHITE BLOOD COUNT (AUTO) 6.2 K/uL (4.8-10.8)
[2024-05-16 11:40] LABS: CREATININE 0.7 mg/dL (0.5-1.0)
[2024-05-16 13:15] VITALS: BP 127/71; PULSE 81; RESP 18; O2SAT 100
[2024-05-16] MEDS: fluCONazole 100 MG TAB PO ONE (13:22)
[2024-05-16 13:57] LABS: APPEARANCE,URINE CLEAR (CLEAR); BILIRUBIN,URINE NEGATIVE (NEGATIVE); COLOR,URINE LIGHT-YELLOW (YELLOW); GLUCOSE, URINE (UA) NEGATIVE (NEGATIVE); KETONES,URINE NEGATIVE (NEGATIVE); LEUKOCYTE ESTERASE ,URINE 75 Leu/uL (NEGATIVE); NITRATE,URINE NEGATIVE (NEGATIVE); OCCULT BLOOD,URINE NEGATIVE (NEGATIVE); PROTEIN,URINE NEGATIVE (NEGATIVE); UROBILINOGEN,URINE 0.2 mg/dL (0.2-1.0)
[2024-05-16 14:01] LABS: ADD UA MICROSCOPIC YES
[2024-05-16 14:08] LABS: BACTERIA,URINE RARE /HPF (None Seen); MUCUS,URINE RARE LPF (None Seen); SQUAMOUS EPITHELIAL CELL,UR MOD /HPF (0-2)
[2024-05-16] MEDS ORDERED: MICO45CR77 VG (14:23)
== END 2024-05-16 14:36 | disposition home or self-care (01) ==
LOC: EDH 09:52
DX: O26.891 Other specified pregnancy related conditions, first trimester (principal); L29.2 Pruritus vulvae; R10.2 Pelvic and perineal pain; Z3A.01 Less than 8 weeks gestation of pregnancy; Z88.0 Allergy status to penicillin
CPT/HCPCS: 36415; 76801; 80048; 81001; 84702; 85025; 86850; 86900; 86901; 87086; 99284

== ENCOUNTER 2024-07-16 12:22 | Emergency (ER) | payer BC, MEDICAID ==
[~2024-07-16] VITALS: Ht 162.6 cm; Wt 98.9 kg
[~2024-07-16 12:22] MED LIST changes: +MICO45CR77 VG
--- NOTE | 2024-07-16 12:41 | ERN ---
ED Note History of Present Illness Stated Complaint: HEADACHE, 15 WEEKS PREG Time Seen by MD: 12:24 Dictation: PATIENT IS A 23-YEAR-OLD FEMALE COMING IN TODAY WITH A LEFT PARIETAL OCCIPITAL HEADACHE SHE HAS HAD FOR THREE DAYS. NO NAUSEA NO VOMITING, NIH IS 0. SHE IS HAVING NO VISION CHANGES. SHE IS15 WEEKS , . PATIENT OF DR. DEBI SCHROEDER. SHE STATES SHE TOOK TYLENOL YESTERDAY FOR PAIN AND THEY DID IT HELPED HOWEVER THE HEADACHE CAME BACK AGAIN TODAY. NO FEVER NO CHILLS. Allergies: Coded Allergies: No Known Drug Allergies (Unverified Allergy, Unknown, 05/05/21) amoxicillin (Unverified Allergy, Unknown, SWELLING, 05/05/21) Home Meds Active Scripts Miconazole Nitrate (Monistat 7) 2 % Cream.appl, 1 TONI VG HS for 7 Days, #45 GM 0 Refills Prov:CLIFFORD HAND 05/16/24 Nitrofurantoin/Nitrofuran Mac (Macrobid) 100 Mg Cap, 1 CAP PO BID for 5 Days, #10 CAP 0 Refills Prov:CLIFFORD HAND 05/07/24 Acetaminophen (Tylenol) 500 Mg Tab, 500 MG PO Q4PRN, #30 TAB Prov:CHINMAY ZAMORANO DRIVING TEACHER 05/12/22 Nitrofurantoin/Nitrofuran Mac (Macrobid) 100 Mg Cap, 1 CAP PO BID for 7 Days, #14 CAP 0 Refills Prov:CHINMAY ZAMORANO DRIVING TEACHER 05/12/22 Reported Medications Acetaminophen with Codeine (Acetaminophen-Cod #3 Tablet) 1 Each Tablet, 1 EACH PO Q4H, TAB 06/15/21 Ibuprofen (Ibuprofen 800 mg Tab) 800 Mg Tab, 800 MG PO Q8H PRN for PAIN, TAB 06/15/21 Docusate Sodium (Colace) 100 Mg Capsule, 100 MG PO BID, CAP 06/15/21 Vit No.124/Iron/FA ( Vitamin Tablet) 1 Each Tablet, 1 EACH PO DAILY, TAB 06/13/21 Past Medical History Past Medical History: No Pertinent History Surgical History: : 2 Para: 1 Aborts: 0 RN Note Reviewed/Agreed w/PFSH: Yes Review of System Dictation CONSTITUTIONAL: NEGATIVE EXCEPT FOR HPI HEAD/FACE: NEGATIVE EXCEPT FOR HPI EENT: NEGATIVE EXCEPT FOR HPI RESPIRATORY: NEGATIVE EXCEPT FOR HPI GASTROINTESTINAL/ABDOMINAL: NEGATIVE EXCEPT FOR HPI GENITOURINARY: NEGATIVE EXCEPT FOR HPI MUSCULOSKELETAL: NEGATIVE EXCEPT FOR HPI INTEGUMENTARY: NEGATIVE EXCEPT FOR HPI NEUROLOGICAL/PSYCH: NEGATIVE EXCEPT FOR HPI HEADACHE HEMATOLOGIC/LYMPHATIC: NEGATIVE EXCEPT FOR HPI ALL SYSTEMS NEGATIVE, EXCEPT NOTED ABOVE. 13 POINT REVIEW OF SYSTEMS ASSESSED AND ALL NEGATIVE EXCEPT FOR ABOVE. Initial Vital Sign VS Vital Signs Date Time Temp Pulse Resp B/P (MAP) Pulse Ox O2 Delivery O2 Flow Rate FiO2 07/16/24 12:46 98.6 88 18 126/67 100 Room Air 0 Physical Exam Dictation VITAL SIGNS REVIEWED GENERAL APPEARANCE: ALERT, ORIENTED X 3, MILD ACUTE DISTRESS, WELL DEVELOPED, NOURISHED. HEAD AND FACE: NON-TRAUMATIC. EYES: PERRL, PINK CONJUNCTIVAS, EYELID NO TRAUMA, ANTERIOR CHAMBER WITH ARCUS SENILIS. EARS: PINNAS INTACT AND NO SIGNS OF TRAUMA OR ERYTHEMA EAR CANALS CLEAR AND NO DISCHARGE TM NO ERYTHEMA NOSE: NO DISCHARGE, NO BLEEDING. OROPHARYNX: MOUTH NORMAL, TONGUE PINK, PHARYNX CLEAR,NO ERYTHEMA, TONSILS NO EXUDATES, NO ABSCESSES NOTED, MUCOUS MEMBRANE MOIST NECK: SUPPLE, NON-TENDER, NO THYROMEGALY, NO MASSES, NO JVD, NO BRUITS BREAST:DEFERRED CHEST:NO TENDERNESS, NO CREPITUS, NO PARADOXICAL MOVEMENT, NO RETRACTIONS LUNGS:CLEAR, WELL-VENTILATED, SYMMETRIC, NO RALES, NO WHEEZING, NO RHONCHI, NO STRIDOR, GOOD BREATH SOUNDS BILATERALLY HEART: REGULAR RATE, REGULAR RHYTHM, NO MURMUR, NO GALLOPS VASCULAR: NO PERIPHERAL EDEMA, ABDOMEN: SOFT, POSITIVE BOWEL SOUNDS, NONDISTENDED, NO GUARDING, NONTENDER, NO REBOUND, NO MASSES NO HEPATOMEGALY, NO SPLENOMEGALY, NO FREEMAN'S SIGN, NO HERNIAS. RECTAL: DEFERRED GENITAL: DEFERRED NEUROLOGICAL: NORMAL SPEECH, MOTOR FUNCTION INTACT, SENSORY FUNCTION INTACT MUSCULOSKELETAL: NECK NONTENDER, FULL RANGE OF MOTION, BACK NONTENDER, FULL RANGE OF MOTION, EXTREMITIES: NONTENDER, FULL RANGE OF MOTION SKIN: COLOR PINK, DRY, NO TURGOR, NO RASH, NO LACERATIONS, NO ABRASIONS, NO CONTUSIONS. LYMPHATIC: DEFERRED Results (Laboratory/Radiology) Laboratory/Radiology 1315/ HEART TONES 160. JOSE ANGEL RN IN ROOM WITH THE EXAM Labs Reviewed?: Yes ED Course ED Course Orders Procedure Category Date Status Time Acetaminophen 500mg PHA 1/12/25 Complete Tab (Tylenol 500mg T 13:00 *Nursing CPOE 07/16/24 Transmitted Communication: 12:38 Current Medications Medications (Trade) Dose Ordered Sig/Arpit Route PRN Reason Start Time Stop Time Status Last Admin Dose Admin Acetaminophen (TYLenol 500MG TAB) 1,000 mg ONCE ONCE PO 07/16/24 13:00 07/16/24 13:01 DC Vital Signs Date Time Temp Pulse Resp B/P (MAP) Pulse Ox O2 Delivery O2 Flow Rate FiO2 07/16/24 12:46 98.6 88 18 126/67 100 Room Air 0 Medical Decision Making MDM MEDICAL DISCHARGE MAKING BASED ON TREATMENT WITH ACETAMINOPHEN FOR A FEMALE WITH A HEADACHE. HEART TONES OBTAINED, 160 NO VAGINAL BLEEDING OR CONTRACTIONS PATIENT TOLD TYLENOL ONLY FOR PAIN UNTIL SHE SEES DR. DEBI SCHROEDER IN THE NEXT 1-2 DAYS. DX & DISP Disposition: Discharge Departure Impression: Primary Impression: Tension headache Additional Impression: and not yet delivered in second trimester Condition: Stable Assign Patient to: FOLLOW-UP WITH PRIMARY CARE PROVIDER IN 1 TO 2 DAYS. TAKE MEDICATIONS DIRECTED HERE IN THE EMERGENCY ROOM. OKAY TO CONTINUE HOME MEDICATIONS UNLESS OTHERWISE DISCUSSED DURING YOUR VISIT IN THE EMERGENCY ROOM TODAY. RETURN TO YOUR NEAREST EMERGENCY ROOM IF SYMPTOMS WORSEN OR IF THERE IS NO IMPROVEMENT. CALL 911 IF YOU NEED IMMEDIATE ASSISTANCE. TAKE TYLENOL XLGA-SYP-GLMNULT NEEDED AND IF NO CONTRAINDICATIONS ARE PRESENT. INCREASE ORAL HYDRATION. A WOUND CULTURE OR URINE CULTURE WAS ORDERED HERE IN THE EMERGENCY ROOM DEPARTMENT PLEASE FOLLOW-UP WITH PRIMARY CARE PROVIDER AND ADVISE THEM TO GET REPEAT PORTS FROM OUR FACILITY. IF YOU HAD ANY TU WRAP/SPLINTS THAT WERE APPLIED HERE, PLEASE DO NOT REMOVE THEM UNTIL YOU SEE YOUR PRIMARY CARE OR SPECIALTY. TAKE TYLENOL ONLY FOR PAIN, SEE YOUR LOAN INTERVIEWER MORTGAGE DOCTOR IN THE NEXT 1-2 DAYS FOR MANAGEMENT OF YOUR TENSION HEADACHE Referrals: NNAMDI MAYA (PCP) Time of Disposition: 13:17 I have reviewed the case, and I agree with, Diagnosis and Plan SONJA SALAZAR NP Jul 16, 2024 12:41
[2024-07-16 13:15] VITALS: BP 126/65; PULSE 85; RESP 18; TEMP 98.3; O2SAT 99
[2024-07-16] MEDS: acetaMINOPHEN 500 MG TABLET PO ONE (13:21)
== END 2024-07-16 13:25 | disposition home or self-care (01) ==
LOC: EDH 12:22
DX: O99.352 Diseases of the nervous system complicating pregnancy, second trimester (principal); G44.209 Tension-type headache, unspecified, not intractable; Z3A.15 15 weeks gestation of pregnancy; Z88.0 Allergy status to penicillin
CPT/HCPCS: 99282

== ENCOUNTER 2024-11-04 01:56 | Emergency (ER) | payer MEDICAID ==
[~2024-11-04] VITALS: Ht 162.6 cm; Wt 101.2 kg
--- NOTE | 2024-11-04 02:14 | ERN ---
ED Note History of Present Illness Stated Complaint: N/V/D, ABD PAIN Chief Complaint: Abdominal Pain Time Seen by MD: 01:58 Time Seen by Midlevel: 01:58 Dictation: Patient is a 24-year-old female with a history of who presents to the emergency department with upper abdominal cramping, nausea nonbloody vomiting, diarrhea onset 4 hours ago. Patient denies any fevers but reports feeling warmth. Denies any upper respiratory symptoms. Patient reports she is [address] Jese mckinley. Patient denies any vaginal bleeding or discharge Allergies: Coded Allergies: No Known Drug Allergies (Unverified Allergy, Unknown, 05/05/21) amoxicillin (Unverified Allergy, Unknown, SWELLING, 05/05/21) Home Meds Active Scripts Miconazole Nitrate (Monistat 7) 2 % Cream.appl, 1 TONI VG HS for 7 Days, #45 GM 0 Refills Prov:CLIFFORD HAND 05/16/24 Nitrofurantoin/Nitrofuran Mac (Macrobid) 100 Mg Cap, 1 CAP PO BID for 5 Days, #10 CAP 0 Refills Prov:CLIFFORD HAND 05/07/24 Acetaminophen (Tylenol) 500 Mg Tab, 500 MG PO Q4PRN, #30 TAB Prov:CHINMAY ZAMORANO 05/12/22 Nitrofurantoin/Nitrofuran Mac (Macrobid) 100 Mg Cap, 1 CAP PO BID for 7 Days, #14 CAP 0 Refills Prov:CHINMAY ZAMORANOP 05/12/22 Reported Medications Acetaminophen with Codeine (Acetaminophen-Cod #3 Tablet) 1 Each Tablet, 1 EACH PO Q4H, TAB 06/15/21 Ibuprofen (Ibuprofen 800 mg Tab) 800 Mg Tab, 800 MG PO Q8H PRN for PAIN, TAB 06/15/21 Docusate Sodium (Colace) 100 Mg Capsule, 100 MG PO BID, CAP 06/15/21 Vit No.124/Iron/FA ( Vitamin Tablet) 1 Each Tablet, 1 EACH PO DAILY, TAB 06/13/21 Past Medical History Past Medical History: No Pertinent History Surgical History: LMP: Apr 06, 2024 : 2 Para: 1 Aborts: 0 Review of System Dictation Constitutional: Negative for fever,chills, and weight loss Eyes: Negative for injury, pain,redness, and discharge ENT: Negative for injury,pain or swelling Cardiovascular: Negative for chest pain, palpitations, and edema Respiratory: Negative for shortness of breath, cough, and wheezing, Abdomen/GI: Negative for constipation positive for abdominal pain, nausea, vomiting, diarrhea Back: Negative for injury and pain : Negative for injury, bleeding and discharge MS/Extremity: Negative for injury and deformity Skin: Negative for rash, and discoloration Neuro: Negative for headache, weakness, numbness, tingling, and seizure Psych: Negative for suicide ideation, homicidal ideation, and hallucinations Initial Vital Sign VS Vital Signs Date Time Temp Pulse Resp B/P (MAP) Pulse Ox O2 Delivery O2 Flow Rate FiO2 11/04/24 01:57 100.4 132 20 112/62 98 Room Air 11/04/24 02:55 0 21 Physical Exam Dictation Vital Signs reviewed General Appearance: Alert, oriented x 3, no acute distress, well developed, nourished. Head and Face: non-traumatic. Eyes: PERRL, pink conjunctivas, eyelid no trauma, anterior chamber with arcus senilis. Ears: Pinnas intact and no signs of trauma or erythema ear canals clear and no discharge TM no erythema Nose: No discharge, no bleeding. Oropharynx: Mouth normal, tongue pink. pharynx clear,no erythema, tonsils no exudates, no abscesses noted, mucous membrane moist Neck: Supple, non-tender, no thyromegaly, no masses, no JVD, no bruits Breast:Deferred Chest:No tenderness, no crepitus, no paradoxical movement, no retractions Lungs:Clear, well-ventilated, symmetric, no rales, no wheezing, no rhonchi, no stridor, good breath sounds bilaterally Heart: Regular rate, regular rhythm, no murmur, no gallops Vascular: no peripheral edema, Abdomen: Soft, positive bowel sounds, nondistended, no guarding, nontender, no rebound, no masses no hepatomegaly, no splenomegaly, no Currie's sign, no hernias. Rectal: Deferred Genital: Deferred Neurological: Normal speech, motor function intact, sensory function intact Musculoskeletal: Neck nontender, full range of motion, back nontender, full range of motion, Extremities: nontender, full range of motion Skin: Color pink, dry, no turgor, no rash, no lacerations, no abrasions, no contusions. Lymphatic: Deferred Results (Laboratory/Radiology) Laboratory/Radiology Laboratory Tests Test 11/04/24 02:18 11/04/24 02:29 White Blood Count 18.2 K/uL (4.8-10.8) H Red Blood Count 4.76 MIL/uL (4.00-5.50) Hemoglobin 12.7 g/dL (12.0-16.0) Hematocrit 38.8 % (36-48) Mean Corpuscular Volume 81.5 fL (79-99) Mean Corpuscular Hemoglobin 26.7 pg (27.0-33.0) L Mean Corpuscular Hemoglobin Concent 32.7 g/dL (32.0-36.0) Red Cell Distribution Width 13.2 % (11.0-15.5) Platelet Count 209 K/uL (130-400) Mean Platelet Volume 11.5 fL (7.5-10.5) H Immature Granulocyte % (Auto) 0.4 % (0-1) Neutrophils (%) (Auto) 89.2 % (40.0-77.0) H Lymphocytes (%) (Auto) 3.6 % (21.0-51.0) L Monocytes (%) (Auto) 6.4 % (3.0-13.0) Eosinophils (%) (Auto) 0.2 % (0.0-8.0) Basophils (%) (Auto) 0.2 % (0.0-5.0) Neutrophils # (Auto) 16.3 K/uL (1.8-7.7) H Lymphocytes # (Auto) 0.7 K/uL (1.0-4.8) L Monocytes # (Auto) 1.2 K/uL (0.1-1.0) H Eosinophils # (Auto) 0.03 K/uL (0.00-0.70) Basophils # (Auto) 0.04 K/uL (0.00-0.20) Absolute Immature Granulocyte (auto 0.08 K/uL (0-1) Nucleated Red Blood Cells 0.0 % (0.0-0.19) White Cell Morphology Comment See comments Sodium Level 138 mmol/L (136-145) Potassium Level 3.6 mmol/L (3.5-5.1) Chloride Level 103 mmol/L (101-111) Carbon Dioxide Level 23 mmol/L (21-32) Blood Urea Nitrogen 7 mg/dL (7-18) Creatinine 0.7 mg/dL (0.5-1.0) Glomerular Filtration Rate Calc 124 mL/min (>90) Random Glucose 97 mg/dL (70-105) Total Calcium 8.9 mg/dL (8.5-10.1) Total Bilirubin 0.4 mg/dL (0.2-1.0) Aspartate Amino Transf (AST/SGOT) 13 U/L (10-37) Alanine Aminotransferase (ALT/SGPT) 12 U/L (12-78) Alkaline Phosphatase 112 U/L (50-136) Total Protein 7.9 g/dL (6.0-8.3) Albumin 3.2 g/dL (3.5-5.0) L Lipase 32 U/L (16-77) Human Chorionic Gonadotropin, Quant 44519 mIU/mL (0-5) H Urine Color DARK-YELLOW (YELLOW) Urine Appearance TURBID (CLEAR) Urine pH 6.0 (5.0-8.0) Urine Specific [place] 1.035 (1.001-1.031) Urine Protein 200 mg/dL (NEGATIVE) H Urine Glucose (UA) 50 mg/dL (NEGATIVE) H Urine Ketones 20 mg/dL (NEGATIVE) H Urine Occult Blood NEGATIVE (NEGATIVE) Urine Nitrate NEGATIVE (NEGATIVE) Urine Bilirubin 0.5 mg/dL (NEGATIVE) H Urine Urobilinogen 3 mg/dL (0.2-1.0) H Urine Leukocyte Esterase 250 Speedy/uL (NEGATIVE) H Urine RBC None /HPF (0-1) Urine WBC 26-50 /HPF (0-1) H Urine Squamous Epithelial Cells MANY /HPF (0-2) Urine Non-Squamous Epithelial Cells 1 /HPF (0-2) Urine Bacteria RARE /HPF (None Seen) Labs Reviewed?: Yes ED Course ED Course Orders Procedure Category Date Status Time Cbc With Differential LAB 11/04/24 Complete 02:09 Comprehensive LAB 11/04/24 Complete Metabolic Panel 02:09 Urinalysis Profile LAB 11/04/24 Complete 02:09 0.9%Nacl 1000ml (Ns PHA 11/04/24 Complete 1000ml) 02:30 Ondansetron 4mg Inj PHA 11/04/24 Complete (Zofran 4mg Inj) 02:30 Lipase LAB 11/04/24 Complete 02:09 Us Ob >14 Weeks US 11/04/24 Taken 02:09 Hcg,Quantitative LAB 11/04/24 Complete 02:09 Acetaminophen 500mg PHA 11/04/24 Complete Tab (Tylenol 500mg T 02:30 Culture Urine ANGEL 11/04/24 Logged 02:33 Current Medications Medications (Trade) Dose Ordered Sig/Arpit Route PRN Reason Start Time Stop Time Status Last Admin Dose Admin Acetaminophen (TYLenol 500MG TAB) 1,000 mg ONCE ONCE PO 11/04/24 02:30 11/04/24 02:31 DC 11/04/24 02:31 Ondansetron HCl (zoFRAN 4MG INJ) 4 mg ONCE ONCE IVP 11/04/24 02:30 11/04/24 02:31 DC 11/04/24 02:31 Sodium Chloride 1,000 ml @ 0 mls/hr ONCE ONCE IV 11/04/24 02:30 11/04/24 02:31 DC 11/04/24 02:31 Vital Signs Date Time Temp Pulse Resp B/P (MAP) Pulse Ox O2 Delivery O2 Flow Rate FiO2 11/04/24 02:55 110 18 118/67 99 Room Air* 0 21 11/04/24 02:31 100.4 11/04/24 01:57 100.4 132 20 112/62 98 Room Air Patient's white blood cell count was elevated. Her urine does seem to have a sterile pyuria. I will give her a single g of Ancef IV push discharge her with a five day prescription of Keflex. Medical Decision Making [facility] Patient has sterile pyuria. Transvaginal ultrasound shows 30 week six day . DX & DISP Disposition: Discharge Departure Impression: Primary Impression: UTI (urinary tract infection) Condition: Stable Scripts Cephalexin Monohydrate (Keflex) 500 Mg Cap 500 MG PO QID for 5 Days, #20 CAP Prov: KARIME ABBASI MD 11/04/24 Additional Instructions: Please return to the emergency room if you can not tolerate the Keflex for your UTI. Stay well hydrated. Follow-up with fire chief deputy regarding the urinary tract infection. Referrals: NONE (PCP) BRIDGETTE DOLL November 04, 2024 02:14 KARIME ABBASI MD November 04, 2024 03:44
[2024-11-04 02:25] LABS: BASOPHILS # (AUTO) 0.04 K/uL (0.00-0.20); BASOPHILS % (AUTO) 0.2 % (0.0-5.0); EOSINOPHILS # (AUTO) 0.03 K/uL (0.00-0.70); EOSINOPHILS % (AUTO) 0.2 % (0.0-8.0); HEMATOCRIT 38.8 % (36-48); IMMATURE GRANULOCYTE ABSOLUTE 0.08 K/uL (0-1); LYMPHOCYTES # (AUTO) 0.7 K/uL (1.0-4.8); LYMPHOCYTES % (AUTO) 3.6 % (21.0-51.0); MEAN CORPUSCULAR HEMOGLOBIN 26.7 pg (27.0-33.0); MEAN CORPUSCULAR HGB CONC 32.7 g/dL (32.0-36.0); MEAN CORPUSCULAR VOLUME 81.5 fL (79-99); MONOCYTES # (AUTO) 1.2 K/uL (0.1-1.0); MONOCYTES % (AUTO) 6.4 % (3.0-13.0); NEUTROPHILS # (AUTO) 16.3 K/uL (1.8-7.7); NEUTROPHILS % (AUTO) 89.2 % (40.0-77.0); PLATELET COUNT (AUTO) 209 K/uL (130-400); RED BLOOD CELL COUNT(AUTO) 4.76 MIL/uL (4.00-5.50); RED CELL DISTRIBUTION WIDTH 13.2 % (11.0-15.5); WHITE BLOOD COUNT (AUTO) 18.2 K/uL (4.8-10.8)
[2024-11-04 02:31] VITALS: TEMP 100.4
[2024-11-04] MEDS: 0.9%NACL 1000ML 1,000 ML IV ONE (02:31)
[2024-11-04] MEDS: ondanSETRON 4MG INJ IVP ONE (02:31)
[2024-11-04] MEDS: acetaMINOPHEN 500 MG TABLET PO ONE (02:31)
[2024-11-04 02:33] LABS: ADD UA MICROSCOPIC YES; APPEARANCE,URINE TURBID (CLEAR); BILIRUBIN,URINE 0.5 mg/dL (NEGATIVE); COLOR,URINE DARK-YELLOW (YELLOW); GLUCOSE, URINE (UA) 50 mg/dL (NEGATIVE); KETONES,URINE 20 mg/dL (NEGATIVE); LEUKOCYTE ESTERASE ,URINE 250 Leu/uL (NEGATIVE); NITRATE,URINE NEGATIVE (NEGATIVE); OCCULT BLOOD,URINE NEGATIVE (NEGATIVE); PROTEIN,URINE 200 mg/dL (NEGATIVE); UROBILINOGEN,URINE 3 mg/dL (0.2-1.0)
[2024-11-04 02:36] LABS: BACTERIA,URINE RARE /HPF (None Seen); MUCUS,URINE MANY LPF (None Seen); NON-SQUAMOUS EPITHELIAL CELL 1 /HPF (0-2); SQUAMOUS EPITHELIAL CELL,UR MANY /HPF (0-2); WBC,URINE 26-50 /HPF (0-1)
[2024-11-04 02:45] LABS: CREATININE 0.7 mg/dL (0.5-1.0); POTASSIUM 3.6 mmol/L (3.5-5.1)
[2024-11-04 03:19] LABS: ALBUMIN 3.2 g/dL (3.5-5.0); BILIRUBIN,TOTAL 0.4 mg/dL (0.2-1.0); TOTAL PROTEIN, SERUM 7.9 g/dL (6.0-8.3)
[2024-11-04] MEDS ORDERED: CEPH500B PO (03:40)
[2024-11-04] MEDS: ceFAZolin SODIUM 1 GM VIAL IVPB ONE (03:54)
[2024-11-04 04:30] VITALS: BP 110/55; PULSE 98; RESP 18; TEMP 99.7; O2SAT 99
--- NOTE | 2024-11-04 07:53 | HMCIMG ---
US OB >14 WEEKS HISTORY: Abdominal pain COMPARISON: None TECHNIQUE: ultrasound study was performed. FINDINGS: There is single intrauterine gestation with estimated gestational age of 30 weeks. heart rate is 148 beats per minute. The fetus is in cephalic presentation with longitudinal lie. weight is estimated to be 1672 grams. Amniotic fluid volume is 15.14 centimeter. The placenta is located in the fundus. No evidence of placenta previa is seen. There is no evidence of nuchal cord. IMPRESSION: 1. There is single intrauterine gestation with estimated gestational age of 30 weeks. heart rate is 148 beats per minute.
== END 2024-11-04 04:38 | disposition home or self-care (01) ==
LOC: EDH 01:56
DX: O23.43 Unspecified infection of urinary tract in pregnancy, third trimester (principal); N39.0 Urinary tract infection, site not specified; O26.893 Other specified pregnancy related conditions, third trimester; R10.2 Pelvic and perineal pain; Z3A.30 30 weeks gestation of pregnancy; Z88.0 Allergy status to penicillin; Z98.890 Other specified postprocedural states
CPT/HCPCS: 99285; 96365; 76805; 96361; 96375; 80053; 84702; 83690; 85025; 87086 ×2; 87186; 81001; 36415; J0690; J7030; J2405